=== PATIENT | female | born 1965 | race Caucasian/White ===

== ENCOUNTER 2024-04-18 23:51 | Emergency (ER) | payer OTHER, SELFPAY ==
[2024-04-18 23:54] VITALS: BP 133/88
[2024-04-19 00:35] LABS: COVID-19 Antigen Negative (Negative)
[2024-04-19 00:52] VITALS: BMI 29.2
--- NOTE | 2024-04-19 01:48 | ED.GENMED ---
History of Present Illness
General
Chief Complaint: Cold/Flu/URI Symptoms
Source: patient
Exam Limitations: none
Time Seen by Provider: 04/19/24 01:48
Nursing documentation reviewed up to this point in time: agreed with
History of Present Illness
History of Present Illness:
The patient is a pleasant 58-year-old female who is generally well and healthy. Patient reports that she developed cough and low-grade fever about 5 days ago. Her symptoms have been ongoing and seem to be getting worse. The patient reports that
she recently has been developing terrible coughing spells. She denies recent hospitalizations and travel history. She denies severe headache and rash.
Past History
Past History
ED Past Medical History: Other (Diverticulitis)
ED Past Surgical History: Other (Breast biopsy)
Social History
Tobacco: Non-smoker
Alcohol: Other
Drug: None
Personal:
Living: with family
Employment: Other
Family History
Family History: Other
Review of Systems
Review of Systems
Allergies reviewed?: Yes
All Other Systems: ROS reviewed and negative except as documented in HPI and ROS
Constitutional: Reports fever and fatigue
EENT: Reports no symptoms
Respiratory: Reports cough and trouble breathing
Cardiac: Reports no symptoms
ABD/GI: Reports no symptoms
: Reports no symptoms
Musculoskeletal: Reports no symptoms
Skin: Reports no symptoms
Neurological: Reports no symptoms
Endocrine: Reports no symptoms
Hematologic/Lymphatic: Reports no symptoms
Psychiatric: Reports no symptoms
Phy Exam
Physical Exam
Physical Exam:
Physical Exam
General: no apparent distress, speaks in full sentences
Neck: supple. no meningeal signs. normal psoterior pharynx. No pharyngeal erythema or exudate
Heart: s1/s2 regular rate and rhythm, no murmur. equal radial pulses.
Lungs: no acute respiratory distress. Mild rhonchi. No wheezing. No tachypnea
Abdomen: normal bowel sounds. not tender. no CVAT
Neuro: alert and oriented. no focal neurological deficits
Skin: no rash
Psychiatric: well kept. interactive and cooperative
Extremities: no edema.
Course
Orders/Labs/Results
Orders:
Orders
04/18/24 23:58
EKG [Electrocardiogram (*1)] Urgent
Reason for Study: Shortness of Breath
COVID-19 Antigen Urgent
Source: Nasal Swab
Influenza A+B Rapid Molecular Urgent
CECIL Source: Nasal Swab
Specimen Description:
04/18/24 23:59
EKG- Treatment ONCE
04/19/24 00:51
Chest [CR Chest - 2 Views ] Urgent
Comment:
Reason For Exam: cough
04/19/24 02:05
Doxycycline [Vibramycin] 100 mg PO NOW STA
Vital Signs
Initial and Last Documented VS:
Initial Vital Signs
Temp Pulse Resp BP Pulse Ox
97.9 F 69 18 133/88 95
04/18/24 23:54 04/18/24 23:54 04/18/24 23:54 04/18/24 23:54 04/18/24 23:54
Last Documented Vital Signs
Temp Pulse Resp BP Pulse Ox
97.9 F 56 18 144/74 98
04/18/24 23:54 04/19/24 02:13 04/19/24 02:13 04/19/24 02:13 04/19/24 02:13
MDM/Problems Addressed
Differential Diagnosis Includes:
Pneumonia, COVID, influenza, CHF
MDM/Problems Addressed:
Patient presents with acute cough, low-grade fever
Acute Exacerbation and/or Progression of Chronic Illness:
Patient is acutely hypertensive but only mildly and there is no sign of CHF.
Acute Exacerbation and/or Progression of Chronic Illness: HTN
*Radiology
Radiology exam reviewed: preliminary read by ED provider (Chest x-ray reviewed by me. Right sided infiltrate)
*Pulse Oximetry
Patient hypoxic: no
*EKG
Interpreted by ED Provider?: Yes
Interpretation: normal
Comparison EKG: no comparison EKG present
Rate: bradycardiac
Rhythm: sinus
[place]: normal axis
Interval: normal interval
QRS Pattern: normal QRS
Ischemia: no ischemia
*Precision Layout Worker Interpretation
Rate: Precision Layout Worker- N/A
*Critical Care Note
Total Time (30-74mins, 75-104mins- exclusive of procedures): Not Applicable
Data Reviewed
Source: patient
Patient Management
Social determinants of health affecting care: Living situation and Strong social support
Escalation/DeEscalation of care consider admission/obs:
Patient is breathing comfortably with normal pulse ox. Patient instructed to return with any increased work of breathing
ED Attending Note
-
Portions of this chart may have been created with voice recognition software.� Occasional wrong word or��sound alike� substitutions may have occurred due to the inherent limitations of voice recognition software.
Discharge Plan
Departure
Patient Disposition: Home (Routine Discharge)
Date of Disposition: 04/19/24
Time of Disposition: 02:07
Patient with high blood pressure during this ER visit?: Yes
Condition: Good
Covid-19: Negative COVID-19
Discharge Problem:
Pneumonia
Instructions: Community-acquired pneumonia in adults, BLOOD PRESSURE
Prescriptions:
New
doxycycline hyclate 100 mg capsule
100 mg PO BID Qty: 13 0RF
Referrals:
Maria G Orellana MD [Family Provider] -
Activity Restrictions/Additional Instructions:
Return for difficulty breathing
Interventions
Interventions:
*Risk Screen - Suicide Last Done: 04/18/24 23:54
*General Assessment Last Done: 04/18/24 23:54
*Neglect/Abuse Screening Last Done: 04/18/24 23:54
*ED COVID-19 Vaccine History Last Done: 04/19/24 00:52
*Nursing Disposition Last Done: 04/19/24 02:14
ED- Pulmonary Assessment Last Done: 04/19/24 00:52
Discharge Date and Time
Print Language: [id number]
[2024-04-19] MEDS: VIBRAMYCIN 100 MG PO (02:11)
[2024-04-19 02:13] VITALS: BP 144/74
== END 2024-04-19 02:18 | disposition home or self-care (01) ==
LOC: EMR 23:51
PROVIDERS: Emergency Medicine; EMERGENCY PHYSICIAN Emergency Medicine; FAMILY PHYSICIAN Family Medicine
DX: J18.9 Pneumonia, unspecified organism (principal); I10 Essential (primary) hypertension; Z11.52 Encounter for screening for COVID-19
CPT/HCPCS: 99285; 71046; 87502; 87811; 93005

== ENCOUNTER → 2024-11-11 09:52 | Outpatient (REF) | payer OTHER, SELFPAY | LOC: RAD 09:52 | PROVIDERS: ATTENDING PHYSICIAN Physician Assistant Medical; FAMILY PHYSICIAN Family Medicine | DX: R10.32 Left lower quadrant pain (principal) | CPT/HCPCS: 74176 ==